=== PATIENT | male | born 1960 | race Caucasian/White ===

== ENCOUNTER 2022-09-24 17:40 | Emergency (ER) | payer OTHER ==
[~2022-09-24] VITALS: Ht 175.3 cm; Wt 69.0 kg
[2022-09-24 17:51] VITALS: BP_SYST 160; PULSE 95; RESP 16; TEMP 98.1; O2SAT 98
[2022-09-24] MEDS ORDERED: LIDO700A15 TP (18:03)
[2022-09-24] MEDS ORDERED: BACL-141 MT (18:03)
[2022-09-24] MEDS ORDERED: ACETAMINOPHEN 325MG TABLET PO ONE (18:15)
[2022-09-24] MEDS ORDERED: BACLOFEN 10MG TABLET PO ONE (18:15)
== END 2022-09-24 18:18 ==
LOC: ER 17:40
DX: M62.830 Muscle spasm of back (principal); I10 Essential (primary) hypertension
CPT/HCPCS: 99283